=== PATIENT | male | born 1975 | race Caucasian/White ===

== ENCOUNTER 2019-09-12 20:07 | Emergency (ER) | payer BC ==
--- NOTE | 2019-09-12 20:53 | EDM.PDOC ---
ED HPI GENERAL MEDICAL PROBLEM - General Chief Complaint: Back Pain or Injury Stated Complaint: BACK PAIN Time Seen by Provider: 09/12/19 20:44 Source of Information: Reports: Patient History Limitations: Reports: No Limitations - History of Present Illness INITIAL COMMENTS - FREE TEXT/NARRATIVE: HISTORY AND PHYSICAL: History of present illness: Patient is a 44-year-old male who presents to the ED today with concern of upper back pain since yesterday. Patient states that yesterday he went and saw the chiropractor and did have relief of his back pain last night. Patient states when he woke up again this morning he started having mid back pain again. Patient denies any trauma or injury to his back or any associated symptoms. Patient states he did take his 's prescription of diclofenac approximately at 5 PM and has had some relief of symptoms. Patient denies any loss or retention of bowel and bladder function or saddle anesthesia. Patient denies fever, chills, chest pain, shortness of breath, or cough. Denies headache, neck stiff ness, change in vision, syncope, or near syncope. Denies nausea, vomiting, abdominal pain, diarrhea, constipation, or dysuria. Has not noted any blood in urine or stool. Patient has been eating and drinking appropriately. Review of systems: As per history of present illness and below otherwise all systems reviewed and negative. Past medical history: As per history of present illness and as reviewed below otherwise noncontributory. Surgical history: As per history of present illness and as reviewed below otherwise noncontributory. Social history: See social history for further information Family history: As per history of present illness and as reviewed below otherwise noncontributory. Physical exam: General: Patient is alert, oriented, and in no acute distress. Patient sitting comfortably on exam table. HEENT: Atraumatic, normocephalic, pupils equal and reactive bilaterally, negative for conjunctival pallor or scleral icterus, mucous membranes moist, TMs normal bilaterally, throat clear, neck supple, nontender, trachea midline. No drooling or trismus noted. No meningeal signs. No hot potato voice noted. Lungs: Clear to auscultation, breath sounds equal bilaterally, chest nontender. Heart: S1S2, regular rate and rhythm without overt murmur Abdomen: Soft, nondistended, nontender. Negative for masses or hepatosplenomegaly. Negative for costovertebral tenderness. Pelvis: Stable nontender. Genitourinary: Deferred. Rectal: Deferred. Skin: Intact, warm, dry. No lesions or rashes noted. Extremities: Atraumatic, negative for cords or calf pain. Neurovascular unremarkable. No obvious deformity of the complete spine. No step-offs, crepitus , or point tenderness to palpation of the complete spine. Patient does have mild pain to palpation of the paraspinous muscles of the thoracic spine and does have pain with range of motion of the thoracic spine but does have full range of motion of the complete spine. Neuro: Awake, alert, oriented. Cranial nerves II through XII unremarkable. Cerebellum unremarkable. Motor and sensory unremarkable throughout. Exam nonfocal. Notes: Discussed the importance for follow-up with a primary care provider. Voices understanding and is agreeable to plan of care. Denies any further questions or concerns at this time. Diagnostics: CBC, CMP, UA, EKG, chest x-ray, troponin, thoracic spine x-ray Therapeutics: Norflex Prescription: Diclofenac, Flexeril Impression: Thoracic back pain Plan: 1. Rest, ice, elevate the affected area. You can apply ice and or heat 15 minutes on, 15 minutes off. 2. Tylenol as directed for pain management or discomfort. Take medication as prescribed. 3. Follow up with the primary care provider as discussed. Return to the ED as needed and as discussed. Definitive disposition and diagnosis as appropriate pending reevaluation and review of above. 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 [No Known Home Meds] 09/12/19 [History] Past Medical History - Past Surgical History GI Surgical History: Reports: Hernia, Inguinal Social & Family History - Family History Family Medical History: Noncontributory - Tobacco Use Smoking Status *Q: Current Every Day Smoker Years of Tobacco use: 20 Packs/Tins Daily: 1 - Recreational Drug Use Recreational Drug Use: No ED ROS GENERAL - Review of Systems Review Of Systems: Comprehensive ROS is negative, except as noted in HPI. ED EXAM, GENERAL - Physical Exam Exam: See Below (see dictation) Course - Vital Signs Last Recorded V/S: Last Vital Signs Temp 97 F 09/12/19 20:18 Pulse 70 09/12/19 20:18 Resp 18 09/12/19 20:18 BP 130/65 09/12/19 20:18 Pulse Ox 97 09/12/19 20:18 - Orders/Labs/Meds Orders: Active Orders 24 hr Category Date Time Status EKG Documentation Completion [RC] STAT Care 09/12/19 20:48 Active Labs: Laboratory Tests 09/12/19 09/12/19 09/12/19 Range/Units 20:52 21:00 21:00 WBC 12.45 H (4.0-11.0) K/uL RBC 5.11 (4.50-5.90) M/uL Hgb 15.5 (13.0-17.0) g/dL Hct 44.8 (38.0-50.0) % MCV 87.7 (80.0-98.0) fL MCH 30.3 (27.0-32.0) pg MCHC 34.6 (31.0-37.0) g/dL RDW Std Deviation 45.9 (28.0-62.0) fl RDW Coeff of Fredy 14 (11.0-15.0) % Plt Count 163 (150-400) K/uL MPV 10.90 (7.40-12.00) fL Add Manual Diff YES Neutrophils % (Manual) 50 (48.0-80.0) % Lymphocytes % (Manual) 43 H (16.0-40.0) % Monocytes % (Manual) 4 (0.0-15.0) % Eosinophils % (Manual) 2 (0.0-7.0) % Basophils % (Manual) 1 (0.0-1.5) % Nucleated RBC % 0.0 /100WBC Absolute Seg Neuts 6.2 H (1.4-5.7) Lymphocytes # (Manual) 5.4 H (0.6-2.4) Monocytes # (Manual) 0.5 (0.0-0.8) Eosinophils # (Manual) 0.2 (0.0-0.7) Basophils # (Manual) 0.1 (0.0-0.1) Nucleated RBCs # 0 K/uL Sodium 144 (136-148) mmol/L Potassium 4.1 (3.5-5.1) mmol/L Chloride 107 (98-107) mmol/L Carbon Dioxide 29.0 (21.0-32.0) mmol/L BUN 20 H (7.0-18.0) mg/dL Creatinine 0.8 (0.8-1.3) mg/dL Est Cr Clr Drug Dosing 115.76 mL/min Estimated GFR (MDRD) > 60.0 ml/min Glucose 82 (74-106) mg/dL Calcium 8.7 (8.5-10.1) mg/dL Total Bilirubin 0.1 L (0.2-1.0) mg/dL AST 10 L (15-37) IU/L ALT 22 (14-63) IU/L Alkaline Phosphatase 74 (46-116) U/L Troponin I < 0.050 (0.000-0.056) ng/mL Total Protein 6.9 (6.4-8.2) g/dL Albumin 4.0 (3.4-5.0) g/dL Globulin 2.9 (2.6-4.0) g/dL Albumin/Globulin Ratio 1.4 (0.9-1.6) Urine Color YELLOW Urine Appearance CLEAR Urine pH 6.5 (5.0-8.0) Ur Specific [place] 1.020 (1.001-1.035) Urine Protein NEGATIVE (NEGATIVE) mg/dL Urine Glucose (UA) NEGATIVE (NEGATIVE) mg/dL Urine Ketones NEGATIVE (NEGATIVE) mg/dL Urine Occult Blood NEGATIVE (NEGATIVE) Urine Nitrite NEGATIVE (NEGATIVE) Urine Bilirubin NEGATIVE (NEGATIVE) Urine Urobilinogen 0.2 (<2.0) EU/dL Ur Leukocyte Esterase NEGATIVE (NEGATIVE) Meds: Medications Discontinued Medications Generic Name Dose Route Start Last Admin Trade Name Freq PRN Reason Stop Dose Admin Orphenadrine Citrate 60 mg 09/12/19 20:49 09/12/19 20:58 Norflex IM 09/12/19 20:50 60 mg ONETIME ONE Administration Departure - Departure Time of Disposition: 21:39 Disposition: Home, Self-Care 01 Clinical Impression: Thoracic back pain Qualifiers: Chronicity: acute Back pain laterality: bilateral Qualified Code(s): M54.6 - Pain in thoracic spine - Discharge Information Referrals: PCP,None [Primary Care Provider] - Forms: ED Department Discharge Additional Instructions: The following information is given to patients seen in the emergency department who are being discharged to home. This information is to outline your options for follow-up care. We provide all patients seen in our emergency department with a follow-up referral. The need for follow-up, as well as the timing and circumstances, are variable depending upon the specifics of your emergency department visit. If you don't have a primary care physician on staff, we will provide you with a referral. We always advise you to contact your personal physician following an emergency department visit to inform them of the circumstance of the visit and for follow-up with them and/or the need for any referrals to a consulting specialist. The emergency department will also refer you to a specialist when appropriate. This referral assures that you have the opportunity for follow-up care with a specialist. All of these measure are taken in an effort to provide you with optimal care, which includes your follow-up. Under all circumstances we always encourage you to contact your private physician who remains a resource for coordinating your care. When calling for follow-up care, please make the office aware that this follow-up is from your recent emergency room visit. If for any reason you are refused follow-up, please contact the [facility] Emergency Department at and asked to speak to the emergency department charge nurse. [facility] [address] [place] [id number] [place] [address] 1. Rest, ice, elevate the affected area. You can apply ice and or heat 15 minutes on, 15 minutes off. 2. Tylenol as directed for pain management or discomfort. Take medication as prescribed. 3. Follow up with the primary care provider as discussed. Return to the ED as needed and as discussed. Sepsis Event Note - Evaluation Sepsis Screening Result: No Definite Risk - Focused Exam Vital Signs: Vital Signs Temp Pulse Resp BP Pulse Ox 09/12/19 20:18 97 F 70 18 130/65 97 Date Exam was Performed: 09/12/19 Time Exam was Performed: 21:39 - My Orders Last 24 Hours: My Active Orders 09/12/19 20:48 EKG Documentation Completion [RC] STAT - Assessment/Plan Last 24 Hours: My Active Orders 09/12/19 20:48 EKG Documentation Completion [RC] STAT
--- NOTE | 2019-09-12 21:32 | CR ---
Indication: Upper back pain. Technique: AP portable views of the chest. Comparison: None Findings: The heart is normal in size. The lungs are clear. No infiltrate, pleural effusion, or pneumothorax is identified. Impression: No acute cardiopulmonary process Dictated by Delmi Yung MD @ Sep 12 2019 9:30PM Signed by Dr. Delmi Yung @ Sep 12 2019 9:30PM
--- NOTE | 2019-09-12 21:32 | CR ---
Indication: Upper back pain. Technique: Three views of the thoracic spine. Comparison: None Findings: The alignment of the thoracic spine is within normal limits. The vertebral body heights are well maintained. The intervertebral disc space heights are well maintained. No fracture subluxation is identified. Only minimal degenerative changes are identified. Impression: Minimal degenerative change Dictated by Delmi Yung MD @ Sep 12 2019 9:29PM Signed by Dr. Delmi Yung @ Sep 12 2019 9:30PM
[2019-09-12 21:34] LABS: BLOOD UREA NITROGEN,BUN 20 mg/dL (7.0-18.0); CHLORIDE,CL 107 mmol/L (98-107); GLUCOSE RANDOM 82 mg/dL (74-106); POTASSIUM,K 4.1 mmol/L (3.5-5.1); SODIUM,NA 144 mmol/L (136-148)
== END 2019-09-12 21:45 | disposition home or self-care (01) ==
LOC: MW.ED 20:07
DX: M54.6 Pain in thoracic spine (principal); Z91.010 Allergy to peanuts
CPT/HCPCS: 36415; 71045; 72072; 80053; 81003; 84484; 85025; 93005; 96372; 99284; J2360; 99283